=== PATIENT | female | born 1945 | race Caucasian/White ===

== ENCOUNTER 2019-03-03 15:05 | Day surgery (SDC) | payer OTHER ==
[~2019-03-03] VITALS: Ht 160 cm; Wt 60.4 kg
[~2019-03-03 15:05] MED LIST: LORAZEPAM; OMEPRAZOLE; SIMVASTATIN
[2019-03-03 15:37] VITALS: Ht 160 cm; Wt 60.4 kg
[2019-03-03 15:46] VITALS: BP 148/90; PULSE 87; RESP 16
[2019-03-03] MEDS ORDERED: PROPOFOL 40 ML ONE (16:01)
[2019-03-03 16:58] VITALS: BP 168/82; PULSE 74
== END 2019-03-03 17:23 | disposition home or self-care (01) ==
LOC: GIL 15:05
PROVIDERS: ATTEND Internal Medicine Gastroenterology
DX: Z12.11 Encounter for screening for malignant neoplasm of colon (principal); D12.4 Benign neoplasm of descending colon; K57.30 Diverticulosis of large intestine without perforation or abscess without bleeding; K64.8 Other hemorrhoids; K29.50 Unspecified chronic gastritis without bleeding; E78.5 Hyperlipidemia, unspecified
CPT/HCPCS: 88305; 88312